=== PATIENT | female | born 1930 | race Caucasian/White ===

== ENCOUNTER → 2017-01-01 | Outpatient (CLI) | payer OTHER, MEDICARE | LOC: BHCLAF 14:00 | PROVIDERS: ATTEND Internal Medicine Cardiovascular Disease | DX: I25.10 Atherosclerotic heart disease of native coronary artery without angina pectoris (principal); R60.9 Edema, unspecified | CPT/HCPCS: 93306-PO ==

== ENCOUNTER 2017-06-21 09:44 | Observation (INO) | payer OTHER, MEDICARE ==
[2017-06-21] MEDS ORDERED: DIAZEPAM 5 MG TAB PO ONE (09:48)
[2017-06-21] MEDS ORDERED: FAMOTIDINE 20 MG TAB PO ONE (09:48)
[2017-06-21] MEDS ORDERED: ASPIRIN EC 325 MG TAB PO ONE ×2 (09:48→10:29)
[2017-06-21] MEDS ORDERED: NS 1,000 ML IV ONE (09:48)
[2017-06-21] MEDS ORDERED: diphenhydrAMINE 25 MG CAP PO ONE ×2 (09:48→10:29)
[2017-06-21] MEDS ORDERED: fentaNYL 100 MCG/2 ML INJ ONE ×3 (10:01→13:55)
[2017-06-21] MEDS ORDERED: LIDOCAINE 1% 300 MG/30 ML SDV ONE (10:01)
[2017-06-21] MEDS ORDERED: MIDAZOLAM 2 MG/2 ML VIAL ONE ×4 (10:02→13:53)
[2017-06-21] MEDS ORDERED: IOPAMIDOL (ISOVUE-370) 150 ML BTL IV ONE ×2 (10:02→12:51)
--- NOTE | 2017-06-21 10:23 | CPEKG ---
Heart Rate: 75 RR Interval: 800 P-R Interval: 220 QRSD Interval: 94 QT Interval: 420 QTC Interval: 470 P [place]: 79 QRS [place]: 117 T Wave [place]: 64 EKG Severity - ABNORMAL ECG - EKG Impression: SINUS RHYTHM EKG Impression: FIRST DEGREE AV BLOCK EKG Impression: left posterior fascicular block. EKG Impression: Early transition across the precordium with inferior Q-waves consistent with EKG Impression: posterior myocardial infarction. Electronically Signed By: Greyson Villagomez 21-Jun-2017 11:22:40
[2017-06-21] MEDS ORDERED: FAMOTIDINE 20 MG TAB ONE (10:29)
[2017-06-21] MEDS ORDERED: DIAZEPAM 5 MG TAB ONE (10:30)
--- NOTE | 2017-06-21 10:32 | PDPROPOC ---
Sedation Plan of Care Sedation Plan of Care: vital signs stable, mental status noted, patient educated of risks, benefits, alternatives, patient can tolerate sedation ASA Classification: ASA 2 Planned drugs: fentanyl, midazolam Mallampati Score: Class 2 Mallampati Reference Image: Patient passed 3-3-2 rule?: Yes
--- NOTE | 2017-06-21 10:32 | PDHPUP ---
History & Physical Update H&P update statement: This history and physical update is based on an assessment of the patient which was completed after admission or registration (within 24 hours), but prior to the surgery/procedure. H&P update: H&P reviewed & patient examined, no change in patient's condition since H&P completed
[2017-06-21 10:39] LABS: % IMMATURE GRANULYOCYTES 0.3 % (0.0-1.1); ABSOLUTE IMMATURE GRANULOCYTES 0.02 10^3/uL (0.00-0.10); ADD DIFF? NO; ADD MORPH? NO; ADD SCAN? NO; ATYPICAL LYMPHOCYTE FLAG 30 (0-99); FRAGMENT RBC FLAG 0 (0-99); HEMATOCRIT 40.4 % (38.0-47.0); HEMOGLOBIN 13.7 g/dL (12.6-16.3); LEFT SHIFT FLG 0 (0-99); LIPEMIA HEMOLYSIS FLAG 90 (0-99); MEAN CELL HEMOGLOBIN 31.6 pg (27.9-34.1); MEAN CELL HEMOGLOBIN CONCENTR. 33.9 g/dL (32.4-36.7); MEAN CELL VOLUME 93.3 fL (81.5-99.8); MEAN PLATELET VOLUME 9.7 fL (8.7-11.7); PLATELET CLUMPS FLAG 0 (0-99); PLATELET COUNT 280 10^3/uL (150-400); RED BLOOD CELL COUNT 4.33 10^6/uL (4.18-5.33); RED CELL DISTRIBUTION WIDTH 13.7 % (11.5-15.2)
[2017-06-21 10:51] LABS: INR 1.04 (0.83-1.16); PROTIME(PATIENT) 13.5 SEC (12.0-15.0)
[2017-06-21 11:15] LABS: ANION GAP 12 mEq/L (8-16); CARBON DIOXIDE 24 mEq/l (22-31); CHLORIDE 103 mEq/L (97-110); CHOLESTEROL 139 mg/dL (140-220); CHOLESTEROL/HDL RATIO 2.96 RATIO (1.00-4.44); CREATININE 0.6 mg/dL (0.6-1.0); GLOMERULAR FILTRATION RATE > 60; GLUCOSE 165 mg/dL (70-100); HIGH DENSITY LIPOPROTEIN 47 mg/dL (40-85); LOW DENSITY LIPOPROTEIN 75 mg/dL (80-100); MAGNESIUM 1.7 mg/dL (1.6-2.3); NON-HIGH DENSITY LIPOPROTEIN 92 mg/dL (90-129); POTASSIUM 4.4 mEq/L (3.5-5.2); SODIUM 139 mEq/L (134-144); TRIGLYCERIDE 89 mg/dL (35-135); VERY LOW DENSITY LIPOPROTEINS 17 mg/dL (8-25)
[2017-06-21] MEDS ORDERED: BIVALIRUDIN 250 MG/5 ML VIAL IV ONE ×3 (12:20→13:29)
[2017-06-21] MEDS ORDERED: ADENOSINE 90 MG/30 ML VIAL IV ONE (12:25)
[2017-06-21] MEDS ORDERED: NITROGLYCERIN 1,500 MCG/15 ML VIAL MISC ONE (12:25)
[2017-06-21] MEDS ORDERED: LABETALOL HCL 5 MG/ML 20 ML MDV ONE (13:37)
[2017-06-21] MEDS ORDERED: CLOPIDOGREL BISULFATE 75 MG TAB ONE ×2 (14:17→14:35)
[2017-06-21] MEDS ORDERED: ONDANSETRON 4 MG/2 ML VIAL IVP PRN (14:48)
[2017-06-21] MEDS ORDERED: ATROPINE SULFATE 1 MG/10 ML SYR IVP PRN (14:48)
[2017-06-21] MEDS ORDERED: CLOPIDOGREL BISULFATE 75 MG TAB PO ONE (14:48)
[2017-06-21] MEDS ORDERED: LORazepam 2 MG/ML INJ IVP PRN (14:48)
[2017-06-21] MEDS ORDERED: NON-FORMULARY NEW DRUG (Oxycodone Hcl/Acetaminophen [Percocet 7.5-325 Mg Tablet] 1 EACH) PO PRN (15:19)
[2017-06-21] MEDS ORDERED: SODIUM CL NASAL GEL 14.1 GM TUBE TP PRN (15:19)
[2017-06-21] MEDS ORDERED: FUROSEMIDE 20 MG TAB PO PRN (15:19)
--- NOTE | 2017-06-21 15:19 | CPEKG ---
Heart Rate: 64 RR Interval: 938 P-R Interval: 248 QRSD Interval: 84 QT Interval: 460 QTC Interval: 475 P [place]: 67 QRS [place]: 100 T Wave [place]: 76 EKG Severity - ABNORMAL ECG - EKG Impression: SINUS RHYTHM EKG Impression: FIRST DEGREE AV BLOCK EKG Impression: PROBABLE RIGHT VENTRICULAR HYPERTROPHY EKG Impression: inferior Q-waves with early R-wave progression consistent with inferoposterior EKG Impression: myocardial infarction. T-wave abnormalities anteriorly have resolved Electronically Signed By: Greyson Villagomez 22-Jun-2017 11:24:55
[2017-06-21] MEDS ORDERED: LOPERAMIDE HCL 2 MG CAP PO SCH (15:30)
[2017-06-21] MEDS ORDERED: LORazepam 2 MG/ML INJ ONE (15:40)
--- NOTE | 2017-06-21 16:50 | CPIP ---
[f rep st] INVASIVE CARDIAC PROCEDURE DATE OF PROCEDURE: 06/21/2017 PROCEDURE: 1. Coronary angiography. 2. Stenting of left anterior descending coronary artery with Synergy drug-eluting stent. 3. Stenting of diagonal artery with Synergy drug-eluting stents. INDICATION: Crescendo anginal symptoms despite maximally tolerated medical therapy. ACCESS: The patient was prepped and draped in sterile fashion. 1% lidocaine was used to anesthetize the right inguinal region. A 6-Prydeinig introducer sheath was placed selectively into the right commo n femoral artery via modified Seldinger technique. The 6-Prydeinig introducer sheath was later exchange d for a 7-Prydeinig introducer sheath via exchange wire technique. CORONARY ANGIOGRAPHY: A 6-Prydeinig JL 4.5 was advanced to the left main coronary artery and images obt ained. The left main coronary artery bifurcated into an LAD and circumflex coronary arteries. The l eft main coronary artery had mild luminal irregularities throughout. In the distal vessel, there was a discrete 20% stenosis present. The left anterior descending coronary artery gave rise to 1 promin ent diagonal branch. The left anterior descending coronary artery was diffusely diseased. In the mi d vessel, there is a single discrete 80% stenosis present. The first diagonal artery was also diffus phylicia diseased with an ostial to proximal 75% stenosis present and a mid 75% stenosis present. The cir cumflex coronary artery was previously stented in the midvessel; the previously placed stent was wide ly patent with mild in-stent restenosis. A 6-Prydeinig JR4 was advanced to the right coronary artery an d images obtained. The right coronary artery is dominant. The right coronary artery was previously stented in the midvessel; the previously placed stent was widely patent with mild in-stent restenosis . LEFT VENTRICULOGRAPHY: Left ventriculography was not performed in an effort to spare contrast. The left ventricular end-diastolic pressure was 16 mmHg. PERCUTANEOUS CORONARY INTERVENTION OF THE LEFT ANTERIOR DESCENDING CORONARY ARTERY AND DIAGONAL ARTER Y: A 7-Prydeinig EBU 3.75 was advanced to the left main coronary artery and images obtained. Angiograp hy confirmed the presence of disease involving the first diagonal artery and the left anterior descen ding coronary artery. Several attempts were made to try to pass an FFR wire into the diagonal artery to calculate FFR; these were unsuccessful secondary to poor torque-ability. The FFR wire was then r emoved and a Luge wire was successfully placed into the diagonal artery. A Prowater J wire was then advanced into the left anterior descending coronary artery and position ve rified by angiography. A 2.0 x 15 Emerge balloon was used to pre-dilate the proximal and mid segment s of the left anterior descending coronary artery. Followup angiography demonstrated significant res idual stenosis in the mid left anterior descending coronary artery. Several attempts were made at [facility] to pass a 2.0 x 12 and a 1.5 x 15 Emerge balloon into the diagonal artery; these were unsuccessf ul. A 3.0 x 20 noncompliant balloon was then placed in the proximal left anterior descending coronar y artery and deployed. Followup angiography demonstrated no residual stenosis in the proximal portio n of the left anterior descending coronary artery; however, residual stenosis still did remain in the mid left anterior descending coronary artery. A 2.5 x 12 Synergy drug-eluting stent was then placed in the mid left anterior descending coronary artery and deployed; followup angiography demonstrated SOSA-3 flow, no residual stenosis. The Prowater J wire was then withdrawn from the left anterior descending coronary artery and several attempts were made at trying to pass it into the diagonal artery; these were unsuccessful. A Luge wi re was then successfully placed into the diagonal artery and position verified by angiography. A 1.5 x 15 Emerge balloon was used to dilate the ostial/proximal lesion followed by a 2.0 x 20 Emerge ball oon. Followup angiography demonstrated significant residual stenosis involving the ostial and mid se gments. A 2.25 x 8 Synergy drug-eluting stent was then placed in the mid vessel and deployed; follow up angiography demonstrated SOSA-3 flow, no residual stenosis. A 2.5 x 24 Synergy drug-eluting stent was then placed from the left anterior descending coronary artery into the first diagonal artery, cr ossing the ostial proximal lesion and deployed; followup angiography demonstrated SOSA-3 flow, no res idual stenosis. The Luge wire was then withdrawn and placed in the left anterior descending coronary artery. The side strut of the stent was opened up with a 1.5 x 15 Emerge balloon, followed by a 2.5 x 20 Emerge balloon. A Prowater J wire was then placed in the diagonal artery. A 2.0 x 20 balloon was placed in the diagonal artery, and a 3.0 x 20 balloon was placed in the left anterior descending coronary artery, and both were simultaneously deployed via kissing technique. Followup angiography d emonstrated SOSA-3 flow, no residual stenosis. COMPLICATIONS: None. CONCLUSIONS: 1. Single-vessel coronary artery disease involving left anterior descending coronary artery and 1st diagonal artery. 2. Status post successful percutaneous coronary intervention of the left anterior descending coronar y artery and diagonal artery using Synergy drug-eluting stents. /[id number]/MODL
[2017-06-21] MEDS: NS 1,000 ML IV SCH (16:58)
[2017-06-21] MEDS: glyBURIDE 2.5 MG TAB PO SCH (18:16)
[2017-06-21] MEDS: CARVEDILOL 6.25 MG TAB PO SCH (18:16)
[2017-06-21] MEDS ORDERED: PRAVASTATIN SODIUM 40 MG TAB PO SCH (21:00)
[2017-06-21] MEDS: TOLTERODINE TARTRATE 2 MG EXT REL CAP PO SCH ×2 (22:16→22:51)
[2017-06-22 04:22] LABS: % IMMATURE GRANULYOCYTES 0.2 % (0.0-1.1); ABSOLUTE IMMATURE GRANULOCYTES 0.02 10^3/uL (0.00-0.10); ADD DIFF? NO; ADD MORPH? NO; ADD SCAN? NO; ATYPICAL LYMPHOCYTE FLAG 30 (0-99); FRAGMENT RBC FLAG 0 (0-99); HEMATOCRIT 36.4 % (38.0-47.0); HEMOGLOBIN 12.2 g/dL (12.6-16.3); LEFT SHIFT FLG 0 (0-99); LIPEMIA HEMOLYSIS FLAG 80 (0-99); MEAN CELL HEMOGLOBIN 31.9 pg (27.9-34.1); MEAN CELL HEMOGLOBIN CONCENTR. 33.5 g/dL (32.4-36.7); MEAN PLATELET VOLUME 9.7 fL (8.7-11.7); PLATELET CLUMPS FLAG 10 (0-99); PLATELET COUNT 241 10^3/uL (150-400); RED BLOOD CELL COUNT 3.83 10^6/uL (4.18-5.33)
[2017-06-22 04:39] LABS: ANION GAP 9 mEq/L (8-16); CALCIUM 9.1 mg/dL (8.5-10.4); CARBON DIOXIDE 24 mEq/l (22-31); CHLORIDE 105 mEq/L (97-110); CREATININE 0.5 mg/dL (0.6-1.0); GLOMERULAR FILTRATION RATE > 60; GLUCOSE 88 mg/dL (70-100); POTASSIUM 3.9 mEq/L (3.5-5.2); SODIUM 138 mEq/L (134-144)
[2017-06-22] MEDS: NS 1,000 ML IV SCH (05:06)
[2017-06-22] MEDS: OXYCODONE/APAP 5/325 TAB PO PRN ×2 (06:33→14:07)
[2017-06-22 08:05] VITALS: PULSE 98; RESP 20
[2017-06-22] MEDS: glyBURIDE 2.5 MG TAB PO SCH (08:49)
[2017-06-22] MEDS: CARVEDILOL 6.25 MG TAB PO SCH (08:50)
[2017-06-22] MEDS ORDERED: PRESERVISION AREDS2 FORMULA EYE VIT 1 EACH PO SCH (09:00)
[2017-06-22] MEDS ORDERED: FOLIC ACID 1 MG TAB PO SCH (09:00)
[2017-06-22] MEDS ORDERED: CLOPIDOGREL BISULFATE 75 MG TAB PO SCH (09:00)
[2017-06-22] MEDS ORDERED: OXYBUTYNIN 5 MG EXT REL TAB PO SCH (09:00)
[2017-06-22] MEDS ORDERED: CALCIUM CARB W/VIT D 500 MG TAB PO SCH (09:00)
[2017-06-22] MEDS ORDERED: NON-FORMULARY NEW DRUG (Folic Acid [Folic Acid] 0.8 MG) PO SCH (09:00)
[2017-06-22] MEDS ORDERED: ASPIRIN EC 325 MG TAB PO SCH (09:00)
[2017-06-22] MEDS ORDERED: OMEGA-3 FATTY ACIDS 1,000 MG CAP PO SCH (09:00)
[2017-06-22] MEDS ORDERED: ISOSORBIDE DINITRATE 10 MG TAB PO SCH (09:00)
[2017-06-22] MEDS ORDERED: ISOSORBIDE DINITRATE 30 MG PO SCH (09:00)
--- NOTE | 2017-06-22 09:19 | CPEKG ---
Heart Rate: 81 RR Interval: 741 P-R Interval: 200 QRSD Interval: 84 QT Interval: 428 QTC Interval: 497 P [place]: 57 QRS [place]: 120 T Wave [place]: 103 EKG Severity - ABNORMAL ECG - EKG Impression: SINUS RHYTHM EKG Impression: RIGHT AXIS DEVIATION EKG Impression: NONSPECIFIC T ABNORMALITIES, ANT-LAT LEADS EKG Impression: BORDERLINE PROLONGED QT INTERVAL EKG Impression: anterior T-wave abnormalities new from previous EKG Electronically Signed By: Greyson Villagomez 22-Jun-2017 11:24:16
[2017-06-22] MEDS ORDERED: PNEUMOC 13-VAL CONJ-DIP CRM/PF 0.5 ML SYR IM ONE (09:45)
[2017-06-22] MEDS ORDERED: FLU VACC QS 2017-18 (3YR+)/PF 0.5 ML SYR (FLUARIX QUAD) IM ONE (09:45)
[2017-06-22 11:43] VITALS: BP 98/49; TEMP 97.9; O2SAT 88
--- NOTE | 2017-06-22 11:56 | ASMTCMCOM ---
CM Note CM Note Notes: 06/21/2017 Case Management Note: Met w/pt. Pt lives in first floor condo alone. Pt reports her son Lam ([phone]) drives her to appointments and helps with toll service observer. Ot no longer drives. Her daughter in law Aysha ( to Lam) brings her groceries once a week. Pt able to make meals independently. Lam's son also provides support. Pt has hired [facility] to come once a week for bathing and light housekeeping. Pt uses a walker to ambulate around the house. Pt has used Home Care agency in the past but unable to recall name. Pt feels home care support is unnecessary at this time. Case Management d/c poc: Home independent w/family support when medically stable. Case Management available if needs change. Date Signed: 06/22/2017 11:55 AM Electronically Signed By:Lucy Tolentino RN
--- NOTE | 2017-06-22 14:53 | ASDISCHSUM ---
Discharge Information Plan Status:Home with No Needs Medically Cleared to Leave:06/22/2017 Discharge Date:06/22/2017 02:13 PM CM D/C Disposition:Home, Routine, Self-Care ADT D/C Disposition:Home, Routine, Self-Care Projected Discharge Date:06/22/2017 02:13 PM Transportation at D/C:Family Discharge Delay Reason: Follow-Up Date:06/22/2017 02:13 PM Discharge Slot: Final Diagnosis: Placement Information Patient Contact Information Contact Name:ELIZABETH Relationship:Cam Address: City: [facility] Phone: [facility] Code: Email: Financial Information Financial Class: Primary Plan Desc:MEDICARE OUTPATIENT Primary Plan Number:[id number] Secondary Plan Desc:[employer]/M[employer] SUPPLEMENT Secondary Plan Number:[id number] Assessment Information [facility] CM Progress Note CM Note CM Note Notes: 06/21/2017 Case Management Note: Met w/pt. [facility] Pt reports her son Lam ([phone]) drives her to appointments and helps with seafood manager. Ot no longer drives. Her daughter in law Aysha ( to Lam) brings her groceries once a week. Pt able to make meals independently. Lam's son also provides support. Pt has hired [facility] to come once a week for bathing and light housekeeping. Pt uses a walker to ambulate around the house. Pt has used Home Care agency in the past but unable to recall name. Pt feels home care support is unnecessary at this time. Case Management d/c poc: Home independent w/family support when medically stable. Case Management available if needs change. Date Signed: 06/22/2017 11:55 AM Electronically Signed By:Lucy Tolentino RN Intervention Information Intervention Type:*IM-Signed Date of Service:06/22/2017 01:57 PM Patient Type:Observation Staff Member:Annie Guzman Hours: Discipline: Severity: Comment:
--- NOTE | 2017-06-22 19:35 | GDS ---
[f rep st] DISCHARGE SUMMARY DISCHARGE DIAGNOSES: 1. Unstable angina, status post percutaneous transluminal coronary angioplasty and stenting due obst ructive disease in the mid left anterior descending and diagonal vessel. 2. History of coronary artery disease with previous percutaneous interventions. 3. Hypertension. 4. Dyslipidemia. 5. Type 2 diabetes mellitus. 6. Obesity with a body max index of 34. 7. History of moderate aortic regurgitation. 8. Severe osteoarthritis. PROCEDURES: 1. On 06/21/2017: Left heart catheterization, which showed LAD with 1 prominent diagonal branch. Th e mid vessel of the LAD had a single discrete 80% stenosis. The 1st diagonal had diffuse disease wit h an ostial to proximal segment stenosis of 75%, and mid vessel stenosis of 75%. PTCA and stenting w ere performed to mid LAD with a 2.5 x 12 mm Synergy drug-eluting stent. PTCA and stenting to the damaris gonal vessel with a 2.25 x 8 mm Synergy stent in the mid vessel, and 2.5 x 24 mm Synergy drug-eluting stent in place from the LAD into the 1st diagonal. BRIEF HISTORY: Please see dictated H and P from the office for complete details. In brief, the delfino ent is an 86-year-old female with a history of known CAD. She had started to note anginal symptoms s imilar to what proceeded previous PCIs. The patient was brought in for elective heart catheterizatio n on 06/21/2017. HOSPITAL COURSE BY PROBLEM: 1. Unstable angina. She obstructive disease present in the LAD and the principal diagonal. This vasquez s been treated with PTCA and stenting. She has been on dual antiplatelet therapy that will be contin ued. Her Coreg dose will be continued with no decrease in dosing. 2. Dyslipidemia. Her LDL is 75, total cholesterol of 139, triglycerides 89, and HDL 47. Her pravas tatin has been continued without change in dosing. 3. Type 2 diabetes mellitus. Her metformin should be held for a total of 48 hours postprocedure ear ly. 4. Hypertension. Blood pressures are acceptable on day of discharge. Continue Coreg. RESULTS PENDING: None. DIET: Cardiac diet recommended. ACTIVITY: Groin precautions reviewed. DISCHARGE MEDICATIONS: Please see med reconciliation. All her home medications are being continued, which include nasal saline, fish oil, vitamin B12, folic acid, furosemide, calcium, Percocet, Detrol , oxybutynin, isosorbide dinitrate, PreserVision, glyburide, loperamide, nitroglycerin, pravastatin, clopidogrel, carvedilol, and aspirin 325 mg p.o. daily. FOLLOWUP INSTRUCTIONS: 1. Groin precautions. 2. Follow up with Dr. Wayne as scheduled for 07/08/2017. /[id number]/MODL
== END 2017-06-22 14:13 | disposition home or self-care (01) ==
LOC: FCATH 09:44 → F2W 12:59
PROVIDERS: ADMIT Internal Medicine Cardiovascular Disease; ATTEND Internal Medicine Cardiovascular Disease
PROC: 027136Z Dilation of Coronary Artery, Two Arteries with Three Drug-eluting Intraluminal Devices, Percutaneous Approach (ICD-10-PCS; principal; 2017-06-21)
PROC: B2151ZZ Fluoroscopy of Left Heart using Low Osmolar Contrast (ICD-10-PCS; principal; 2017-06-21)
PROC: B2111ZZ Fluoroscopy of Multiple Coronary Arteries using Low Osmolar Contrast (ICD-10-PCS; principal; 2017-06-21)
PROC: 4A023N7 Measurement of Cardiac Sampling and Pressure, Left Heart, Percutaneous Approach (ICD-10-PCS; principal; 2017-06-21)
DX: I25.110 Atherosclerotic heart disease of native coronary artery with unstable angina pectoris (principal); I10 Essential (primary) hypertension; E78.5 Hyperlipidemia, unspecified; E11.9 Type 2 diabetes mellitus without complications; I35.1 Nonrheumatic aortic (valve) insufficiency; E66.9 Obesity, unspecified; Z68.34 Body mass index [BMI] 34.0-34.9, adult; M19.90 Unspecified osteoarthritis, unspecified site; Z82.49 Family history of ischemic heart disease and other diseases of the circulatory system; Z95.5 Presence of coronary angioplasty implant and graft; Z23 Encounter for immunization
CPT/HCPCS: 90670; 90686; 93005; 93458; C1725; C1760; C1769; C1874; C1887; C9600; C9601; G0008; G0009; J0153; J0583; J1644; J2060; J2250; J3010; J3490; Q9967